=== PATIENT | male | born 1985 | race Caucasian/White ===

== ENCOUNTER 2017-01-20 05:21 | Emergency (ER) | payer SELFPAY ==
--- NOTE | ~2017-01-20 | ER ---
PATIENT'S NAME: EVI FRYE [facility] AGE: 31 Y [address] ROOM: [place] [address] LOCATION: [facility] ADMIT DATE: 01/20/2017 ER/Outpatient Report DISCHARGE DATE: 01/20/2017 FAMILY PHYSICIAN: , NANCY ATTENDING PHYSICIAN: Ashkan Caban HISTORY OF PRESENT ILLNESS: This patient is a 31-year-old male who comes in with left flank lower quadrant abdominal pain. He had some nausea, vomiting and chills. It started about an hour prior to presenting to the emergency room. Sudden onset. The patient initially saw Dr. Caban. See Dr. Caban's dictation in regard to the chief complaint, history of present illness, past medical history, physical exam. Dr. Caban transferred the patient's care over to me at shift change and asked me to follow up with the patient's laboratory study results, CT scan study results, final diagnosis, and treatment plan. The patient's CMS was normal except for an elevated creatinine of 1.4 and low GFR of 59. Urine showed full field whites, 50-100 reds, 20-50 epithelial cells, few bacteria, 3+ mucus, 2+ amorphous material with negative nitrites. Culture pending. White count is 9800, 44 segs, 42 lymphs, 12 monos, 1 eo, 1 baso. Hemoglobin was 15.6, hematocrit 46.1, and platelet count 283,000. CT scan of the abdomen and pelvis with renal stone protocol showed a 3 mm distal left ureteral stone with some mild hydroureteronephrosis. CT scan was read by Radiology, see dictated transcribed report. The patient was given IV fluids, IV Toradol, Dilaudid for pain, and IV Zofran for nausea. IMPRESSION: A 3 mm distal left ureteral stone with mild hydronephrosis and accompanying left flank pain and left groin pain. PLAN: The patient dismissed home. Observation. Activity as tolerated. Fluids and diet as tolerated. Strain urine. [place] 10/325 as needed for pain #12; Zofran 4 mg as needed for nausea, vomiting #10; and Flomax 0.4 mg once a day #5. Follow up with personal physician as needed. Discussion ensued with the patient concerning my findings and recommendations, he understands. JUANCARLOS MALIK MD PATIENT'S NAME: EVI FRYE [facility] AGE: 31 Y [address] ROOM: [place] [address] LOCATION: [facility] ADMIT DATE: 01/20/2017 ER/Outpatient Report DISCHARGE DATE: 01/20/2017 FAMILY PHYSICIAN: NANCY PATEL ATTENDING PHYSICIAN: Ashkan Caban/chandan /[id number] d: 01/20/17715 t: 01/21/17616, OUTPATIENT REPORT
--- NOTE | ~2017-01-20 | ER ---
PATIENT'S NAME: EVI FRYE [facility] AGE: 31 Y [address] ROOM: [place] [address] LOCATION: [facility] ADMIT DATE: 01/20/2017 ER/Outpatient Report DISCHARGE DATE: 01/20/2017 FAMILY PHYSICIAN: PHYSICIAN, NO ATTENDING PHYSICIAN: Ashkan Caban Time of Arrival: 0521 hours. Time of Evaluation: 0534 hours. CHIEF COMPLAINT: Abdominal pain. HISTORY OF PRESENT ILLNESS: The patient is a 31-year-old male, who presents to the emergency department today with chief complaint of abdominal pain. The patient developed with some left lower quadrant abdominal pain, it started about 1 hour prior to arrival. It came on all of a sudden. Having some nausea and vomiting x1. No fevers. Does have some chills. No constipation or diarrhea. Denies any urinary urgency or painful urination, but does have some frequency. It is just the pain. It is currently 10/10 in severity. PAST MEDICAL HISTORY: Kidney stones and enzyme deficiency disorder. PAST SURGICAL HISTORY: Knee surgery and tonsillectomy. SOCIAL HISTORY: The patient smokes a pack per day for 3 years. Uses methamphetamine daily. ALLERGIES: PENICILLIN. MEDICATIONS: None. PRIMARY CARE DOCTOR: None. REVIEW OF SYSTEMS: All systems are reviewed by myself and negative with the exception of those discussed in the HPI and past medical history. PHYSICAL EXAMINATION: VITAL SIGNS: Weight 92 kg, blood pressure 135/90, pulse 84, respiratory rate PATIENT'S NAME: EVI FRYE [facility] AGE: 31 Y [address] ROOM: [place] [address] LOCATION: [facility] ADMIT DATE: 01/20/2017 ER/Outpatient Report DISCHARGE DATE: 01/20/2017 FAMILY PHYSICIAN: PHYSICIAN, NO ATTENDING PHYSICIAN: Ashkan Caban 16, temperature 96.9, and oxygen saturation 99% on room air. GENERAL: The patient is a 31-year-old male, appears as stated age, in mild acute distress secondary to pain. HEENT: Normocephalic and atraumatic. Pupils are equal, round, and reactive to light. NECK: Supple. There is no nuchal rigidity. CARDIOVASCULAR: Regular rate and rhythm. No murmurs, rubs, or gallops. LUNGS: Clear to auscultation bilaterally. No wheezes, rales, or rhonchi. ABDOMEN: Soft. Mild left lower quadrant tenderness to palpation. No rebound, rigidity, or guarding. Positive bowel sounds. MUSCULOSKELETAL: The patient moves all 4 extremities. Ambulates with steady gait. SKIN: Warm and dry. There are no rashes or lesions noted. LABORATORY DATA AND X-RAYS: Labs and x-rays are pending at the time of transfer of care. Please see Dr. Hurd's dictation. IMPRESSION: 1. Acute left lower quadrant abdominal pain. 2. Please see Dr. Hurd's dictation. EMERGENCY DEPARTMENT COURSE: The patient was brought back to the examination room. Seen and evaluated by myself. IV was established. Laboratory analysis and imaging are obtained as described above. The patient was given 4 mg of Zofran and 30 mg of Toradol IV. He was given a liter of normal saline. I have discussed the case with Dr. Hurd at shift change. He will follow up on laboratory analysis and imaging. Please see his dictation. DISPOSITION: Per Dr. Hurd. DO ELLIS SALAZAR/modl /[id number] d: 01/20/17 2154 t: 01/21/17 1839, OUTPATIENT REPORT
[2017-01-20 05:52] LABS: BASOPHIL # 0.1 K/uL (0.0-0.2); BASOPHIL % 0.7 %; EOSINOPHIL # 0.1 K/uL (0.0-0.5); EOSINOPHIL % 0.7 %; HEMATOCRIT 46.1 % (37.0-53.0); HEMOGLOBIN 15.6 g/dL (12.0-17.0); IMMATURE GRANULOCYTE % 0.1 %; LYMPHOCYTE # 4.1 K/uL (0.8-4.0); LYMPHOCYTE % 41.9 %; MCH 29.3 pg (27.0-34.0); MCHC 33.8 gm/dL (32.0-36.5); MCV 86.5 fl (83.0-98.0); MONOCYTE # 1.2 K/uL (0.0-1.0); MONOCYTE % 12.4 %; MPV 8.6 fl (9.4-12.4); NEUTROPHIL # (ANC) 4.3 K/uL (1.4-9.0); NEUTROPHIL % 44.2 %; NRBC % 0 /100WBC (0-0.00); PLATELET COUNT 283 K/uL (150-450); RBC 5.33 M/uL (4.00-6.00); RDW-CV 12.4 % (11.9-14.6); WBC 9.8 K/uL (4.0-11.0)
[2017-01-20 05:54] LABS: BILIRUBIN URINE NEGATIVE (NEGATIVE); BLOOD URINE 250 /UL (NEGATIVE); GLUCOSE URINE NEGATIVE (NEGATIVE); KETONE URINE NEGATIVE (NEGATIVE); LEUKOCYTES URINE 500 /UL (NEGATIVE); NITRITE URINE NEGATIVE (NEGATIVE); PROTEIN URINE 30 mg/dL (NEGATIVE); SPEC GRAVITY URINE 1.025 (1.003-1.035); UROBILINOGEN URINE NORMAL (NORMAL)
[2017-01-20 05:55] LABS: COLOR URINE YELLOW (YELLOW)
[2017-01-20 05:56] LABS: TURBIDITY URINE 1+ (CLEAR)
[2017-01-20 06:02] LABS: AMORPHOUS URINE 2+ (NEGATIVE); BACTERIA URINE FEW (NEGATIVE); EPITHELIAL URINE 20-50 #/HPF (NEGATIVE); MUCUS URINE 3+ (NEGATIVE); RBC URINE 50-100 #/HPF (NEGATIVE); WBC URINE FULL FIELD #/HPF (NEGATIVE)
[2017-01-20 06:10] LABS: ANION GAP 11.7 (10.0-19.0); CALCIUM 8.8 mg/dL (8.5-10.5); CREATININE 1.4 mg/dL (0.6-1.3); POTASSIUM 3.7 mMol/L (3.7-5.1); TOTAL BILIRUBIN 0.9 mg/dL (0.0-1.5); TOTAL PROTEIN 7.2 g/dL (6.0-8.4)
== END 2017-01-20 06:54 | disposition disaster alternative care site (69) ==
LOC: GMED 05:21
PROVIDERS: Emergency Medicine
DX: N13.2 Hydronephrosis with renal and ureteral calculous obstruction (principal); F17.210 Nicotine dependence, cigarettes, uncomplicated; F15.90 Other stimulant use, unspecified, uncomplicated; Z88.0 Allergy status to penicillin
CPT/HCPCS: J1170; J1885; J2405; J7030

== ENCOUNTER 2017-01-28 22:35 | Emergency (ER) | payer SELFPAY | END 2017-01-28 23:30 | disposition disaster alternative care site (69) | LOC: GMED 22:35 | DX: Z53.21 Procedure and treatment not carried out due to patient leaving prior to being seen by health care provider (principal) ==